=== PATIENT | male | born 1985 | race African-American/Black ===

== ENCOUNTER 2017-12-01 18:46 | Emergency (ER) | payer OTHER ==
[~2017-12-01] VITALS: Ht 177.8 cm; Wt 74.8 kg
[2017-12-01 18:56] VITALS: BP 161/105
--- NOTE | 2017-12-01 21:58 | NUR ---
To bed 3.
--- NOTE | 2017-12-01 22:15 | NUR ---
32 Y/O M BIBA W/C/O ABD PAIN, N/V /CHILLS X TODAY. MED HX DM TYPE 1. PT ON MOTITOR, VSS. ER MADE AWARE.
[2017-12-01] MEDS ORDERED: NACL 0.9% 500 ML IV ONE ×2 (22:23)
[2017-12-01] MEDS ORDERED: KETOROLAC 30 MG/ML VIAL IVP ONE (22:25)
[2017-12-01] MEDS ORDERED: ONDANSETRON 4 MG/2 ML VIAL IVP ONE (22:25)
--- NOTE | 2017-12-01 22:45 | NUR ---
PT RESTING IN BED, VSS. NO S/S OF DISTRESS NOTED AT THE MOMENT.
[2017-12-01 22:58] LABS: ACETONE, SERUM NEGATIVE (NEGATIVE)
[2017-12-01 22:59] LABS: ANION GAP 13.3 (8-16); CARBON DIOXIDE 27.6 mmol/L (21-32); CHLORIDE 95 mmol/L (98-107); CREATININE 1.3 mg/dL (0.7-1.3); GFR ARICAN-AMERICAN 83 mL/min (>90); GLUCOSE 369 mg/dL (74-106); POTASSIUM 3.9 mmol/L (3.5-5.1); SODIUM SERUM 132 mmol/L (136-145); UREA NITROGEN, BLOOD 13 mg/dL (7-18)
[2017-12-01 23:02] LABS: BASOPHILS # (AUTO) 0.2 K/uL (0.00-0.22); BASOPHILS % (AUTO) 3.5 % (0.0-2.0); EOSINOPHILS % (AUTO) 0.3 % (0.0-4.0); HEMATOCRIT 48.2 % (36-52); HEMOGLOBIN 15.6 g/dL (12.0-18.0); LYMPHOCYTES # (AUTO) 0.9 K/uL (2.0-11.5); LYMPHOCYTES % (AUTO) 14.7 % (20.5-51.1); MEAN CORPUSCULAR HEMOGLOBIN 28 pg (27-31); MEAN CORPUSCULAR HGB CONC 32 g/dL (33-37); MEAN CORPUSCULAR VOLUME 87 fL (80-94); MONOCYTES # (AUTO) 0.7 K/uL (0.8-1.0); MONOCYTES % (AUTO) 10.9 % (1.7-9.3); NEUTROPHILS # (AUTO) 4.6 K/uL (1.8-7.7); NEUTROPHILS % (AUTO) 70.6 % (42.2-75.2); PLATELET COUNT (AUTO) 252 K/uL (140-450); RED BLOOD CELL COUNT(AUTO) 5.52 MIL/uL (4.20-6.10); RED CELL DISTRIBUTION WIDTH 11.3 % (11.6-13.7); WHITE BLOOD COUNT (AUTO) 6.4 K/uL (4.8-10.8)
[2017-12-01 23:05] LABS: ALBUMIN 3.9 g/dL (3.4-5.0); ASPARTATE AMINOTRANSFERASE 44 U/L (15-37)
[2017-12-01] MEDS ORDERED: METOCLOPRAMIDE 10 MG/2 ML INJ VIAL IVP ONE (23:30)
[2017-12-02 00:36] VITALS: BP 120/54
--- NOTE | 2017-12-02 00:36 | NUR ---
Patient discharged with v/s stable. Written and verbal after care instructions given and explained. Patient alert, oriented and verbalized understanding of instructions. Ambulatory with steady gait. All questions addressed prior to discharge. ID band removed. Patient advised to follow up with PMD. Rx of REGLAN AND ZOFRAN given. Patient educated on indication of medication including possible reaction and side effects. Opportunity to ask questions provided and answered.
== END 2017-12-02 00:36 | disposition home or self-care (01) ==
LOC: MED 18:46
DX: K31.84 Gastroparesis (principal); R11.2 Nausea with vomiting, unspecified; E10.9 Type 1 diabetes mellitus without complications
CPT/HCPCS: 36415; 80053; 82009; 85025; 96361; 96374; 96375; 99285; J1885; J2405; J2765